=== PATIENT | male | born 1945 | race Caucasian/White ===

== ENCOUNTER 2019-08-30 15:20 | Emergency (ER) | payer OTHER ==
[~2019-08-30] VITALS: Ht 177.8 cm; Wt 90.7 kg
[2019-08-30 18:16] VITALS: BP 116/73
[2019-08-30] MEDS ORDERED: TESSALON PERLE100 MG PO (18:25)
[2019-08-30] MEDS ORDERED: PREDNISONE 20 M20 MG PO (18:25)
== END 2019-08-30 18:52 | disposition home or self-care (01) ==
LOC: ER 15:20
DX: J06.9 Acute upper respiratory infection, unspecified (principal); J40 Bronchitis, not specified as acute or chronic; Z87.891 Personal history of nicotine dependence